=== PATIENT | male | born 1935 | race Caucasian/White ===

== ENCOUNTER 2016-03-17 10:19 | Observation (INO) | payer MEDICARE, BC ==
[2016-03-17] MEDS ORDERED: NORMAL SALINE 1000 ML 1,000 ML IV ONE ×2 (11:04→12:58)
--- NOTE | 2016-03-17 11:04 | ER Document Report ---
ED Dizziness/Weakness - General Mode of Arrival: Medic Information source: Patient, Relative - Daughter - HPI Patient complains to provider of: Weakness Associated symptoms: Other - See above <JUAN TERRAZAS - Last Filed: 03/17/16 11:18> <DERRICK BEAN - Last Filed: 03/17/16 15:47> - General Chief Complaint: Weakness Stated Complaint: WEAKNESS Notes: Patient is an 80 year old male, with a past medical history including diabetes, who presents to the emergency department with his daughter via EMS complaining of weakness onset 5 days ago. Per daughter patient became weak Th night and had difficulty moving. Daughter states that patient was put on 40mg of Prosac daily last week and is worried that has triggered his weakness. Patient reports that he has not been eating since becoming weak and complains of pain in his left lateral neck muscles. Patient states that he was so weak last night that he had to crawl to the bathroom. Patient denies cough and fever. PCP: Dr. Dao (JUAN TERRAZAS) - Related Data Allergies/Adverse Reactions: No Known Allergies Allergy (Unverified 04/09/12 23:50) Past Medical History - General Information source: Patient - Social History Smoking Status: Unknown if Ever Smoked Family History: None, Reviewed & Not Pertinent - Past Medical History Cardiac Medical History: Reports: Hx Hypercholesterolemia Endocrine Medical History: Reports: Hx Diabetes Mellitus Type 2 Renal/ Medical History: Reports: Hx Kidney Stones Musculoskeltal Medical History: Reports Hx Arthritis - knees, Reports Other - Hx essential tremor Past Surgical History: Reports: Hx Inguinal Hernia - bilaterally - Immunizations Hx Diphtheria, Pertussis, Tetanus Vaccination: Yes - 2007 <JUAN TERRAZAS - Last Filed: 03/17/16 11:18> Review of Systems - Review of Systems Constitutional: See HPI, Weakness. denies: Fever EENT: No symptoms reported Cardiovascular: No symptoms reported Respiratory: denies: Cough Gastrointestinal: See HPI, Poor appetite Genitourinary: No symptoms reported Male Genitourinary: No symptoms reported Musculoskeletal: No symptoms reported Skin: No symptoms reported Hematologic/Lymphatic: No symptoms reported Neurological/Psychological: No symptoms reported -: Yes All other systems reviewed and negative <JUAN TERRAZAS - Last Filed: 03/17/16 11:18> Physical Exam - Vital signs Interpretation: Normal, Other - Pulses not particularly strong - General General appearance: Appears well, Alert - HEENT Head: Normocephalic, Atraumatic Mucous membranes: Dry Neck: No: Carotid bruit - Respiratory Respiratory status: No respiratory distress Chest status: Nontender Breath sounds: Normal Chest palpation: Normal - Cardiovascular Rhythm: Regular Heart sounds: Normal auscultation Murmur: No - Abdominal Inspection: Normal Distension: No distension Bowel sounds: Normal Tenderness: Nontender Organomegaly: No organomegaly - Extremities General upper extremity: Normal inspection General lower extremity: Normal inspection - Neurological Neuro grossly intact: Yes Cognition: Normal Orientation: AAOx4 Theron Coma Scale Eye Opening: Spontaneous [place] Coma Scale Verbal: Oriented Theron Coma Scale Motor: Obeys Commands Cassatt Coma Scale Total: 15 Speech: Normal - Psychological Associated symptoms: Normal affect, Normal mood - Skin Skin Temperature: Warm Skin Moisture: Dry Skin Color: Normal <JUAN TERRAZAS - Last Filed: 03/17/16 11:18> Course <JUAN TERRAZAS - Last Filed: 03/17/16 11:18> - Laboratory Result Diagrams: 03/17/16 11:50 03/17/16 11:50 - EKG Interpretation by Vt EKG shows normal: Sinus rhythm, Intervals, QRS Complexes, ST-T Waves. abnormal : [place] - Borderline left axis deviation Rate: Normal - 62 Rhythm: NSR Voltage: Decreased voltage - Consults Dr. Angelo Time consulted: 15:40 Consulted provider: will come to ER <DERRICK BEAN - Last Filed: 03/17/16 15:47> - Re-evaluation Re-evalutation: 03/17/16 14:09 The patient has received IV fluids. He reports he is feeling much better. At this time he is sitting up in bed eating lunch. He does have some difficulty feeding himself due to his essential tremor. 03/17/16 15:37 Patient reports he feels much better after 2 L of IV fluid and eating the lunch that was provided. He did not particular care for the lunch as it was hospital food and not very tasty. At this time he is able to grape picker both feet several inches off the stretcher, but cannot hold them up. He states both feet feel like they weigh over 10 pounds each. The patient's weakness and loss of appetite have developed since starting the Prozac a few days ago. (DERRICK BEAN) - Vital Signs Vital signs: Temp Pulse Resp BP Pulse Ox 97.8 F 65 14 135/88 H 95 03/17/16 10:29 03/17/16 10:29 03/17/16 11:01 03/17/16 11:01 03/17/16 11:01 (DERRICK BEAN) - Laboratory Laboratory results interpreted by me: 03/17/16 03/17/16 11:50 11:50 RBC 4.28 L Hgb 13.3 L Sodium 145.3 H BUN 27 H Est GFR (Non-Af Amer) 56 L Glucose 126 H AST 16 L Creatine Kinase 45 L Total Protein 6.1 L Albumin 3.4 L Discharge <JUAN TERRAZAS - Last Filed: 03/17/16 11:18> - Discharge Admitting Provider: Hospitalist Unit Admitted: Telemetry <DERRICK BEAN - Last Filed: 03/17/16 15:47> - Discharge Clinical Impression: Weakness, Dehydration, Parkinson's-like tremor Condition: Stable Disposition: ADMITTED OBSERVATION Scribe Attestation: 03/17/16 15:47 I personally performed the services described in the documentation, reviewed and edited the documentation which was dictated to the scribe in my presence, and it accurately records my words and actions. (DERRICK BEAN) Scribe Documentation - Scribe Written by Shane:: Shane San, 03/17/16, 11:30 acting as scribe for :: Shelbie <JUAN TERRAZAS - Last Filed: 03/17/16 11:18>
[2016-03-17 11:26] LABS: APPEARANCE,URINE CLEAR; BILIRUBIN,URINE NEGATIVE (NEGATIVE); GLUCOSE, URINE NEGATIVE (NEGATIVE); KETONES,URINE NEGATIVE (NEGATIVE); LEUKOCYTE ESTERASE,URINE NEGATIVE (NEGATIVE); NITRITE,URINE NEGATIVE (NEGATIVE); PROTEIN,URINE NEGATIVE (NEGATIVE); UROBILINOGEN,URINE NEGATIVE mg/dL (<2.0)
[2016-03-17 12:17] LABS: ABSOLUTE EOSINOPHILS # (AUTO) 0.1 10^3/uL (0.0-0.6); ABSOLUTE LYMPHOCYTES (AUTO) 1.2 10^3/uL (0.5-4.7); ABSOLUTE MONOCYTES (AUTO) 0.5 10^3/uL (0.1-1.4); ABSOLUTE NEUT (AUTO) 4.8 10^3/uL (1.7-8.2); BASOPHILS % (AUTO) 0.4 % (0-2); EOSINOPHILS % (AUTO) 0.9 % (0-6); HEMATOCRIT 39.8 % (37.9-51.0); HEMOGLOBIN 13.3 g/dL (13.5-17.0); HGB HCT DIFFERENCE 0.1; LYMPHOCYTES % (AUTO) 17.8 % (13-45); MEAN CORPUSCULAR HGB CONC 33.4 g/dL (32.0-36.0); MEAN CORPUSCULAR VOLUME 93 fl (80-97); MONOCYTES % (AUTO) 7.3 % (3-13); RED BLOOD COUNT 4.28 10^6/uL (4.35-5.55); RED CELL DISTRIBUTION WIDTH 13.1 % (11.5-14.0); SEGMENTED NEUTROPHILS % (AUTO) 73.6 % (42-78); WHITE BLOOD COUNT 6.5 10^3/uL (4.0-10.5)
--- NOTE | 2016-03-17 12:19 | EKG REPORT ---
SEVERITY:- OTHERWISE NORMAL ECG - SINUS RHYTHM BORDERLINE LEFT AXIS DEVIATION LOW VOLTAGE IN FRONTAL LEADS : Confirmed by: Dorinda Schumacher 17-Mar-2016 12:18:52
[2016-03-17 12:36] LABS: ALANINE AMINOTRANSFERASE 32 U/L (21-72); ALBUMIN 3.4 g/dL (3.5-5.0); ALKALINE PHOSPHATASE 89 U/L (38-126); ANION GAP 10 (5-19); ASPARTATE AMINO TRANSFERASE 16 U/L (17-59); BILIRUBIN,TOTAL 0.5 mg/dL (0.2-1.3); BLOOD UREA NITROGEN 27 mg/dL (7-20); CALCIUM 9.1 mg/dL (8.4-10.2); CARBON DIOXIDE 28 mmol/L (22-30); CHLORIDE 107 mmol/L (98-107); CREATINE KINASE 45 U/L (55-170); CREATININE RESULT 1.23 mg/dL (0.52-1.25); GLUCOSE 126 mg/dL (75-110); MAGNESIUM 1.6 mg/dL (1.6-2.3); POTASSIUM 4.3 mmol/L (3.6-5.0); SODIUM 145.3 mmol/L (137-145); TOTAL PROTEIN 6.1 g/dL (6.3-8.2)
[2016-03-17 12:46] LABS: CREATINE KINASE MB 0.37 ng/mL (<4.55)
[2016-03-17 12:47] LABS: TROPONIN I < 0.012 ng/mL
[2016-03-17] MEDS ORDERED: NORMAL SALINE 1000 ML 1,000 ML IV PRN (17:10)
[2016-03-17] MEDS ORDERED: ONDANSETRON HCL INJ/PF 4 MG/2 ML SDV IV PRN (17:10)
[2016-03-17] MEDS ORDERED: ACETAMINOPHEN 325 MG TABLET PO PRN (17:10)
[2016-03-17] MEDS ORDERED: DEXTROSE 40% GEL 15 GM TUBE PO PRN ×2 (17:18)
[2016-03-17] MEDS ORDERED: GLUCAGON,HUMAN RECOMB 1 MG INJ IM PRN (17:18)
[2016-03-17] MEDS ORDERED: INSULIN REG, HUMAN 100 UNIT/ML 3 ML VIAL (PYX) SUBCUT PRN (17:18)
[2016-03-17] MEDS ORDERED: DEXTROSE 50%-WATER 25 GM/50 ML DISP.SYRIN IV PRN ×2 (17:18)
--- NOTE | 2016-03-17 17:41 | PDOC H&P ---
History of Present Illness Admission Date/PCP: 03/17/16 16:03 Patient complains of: Generalized weakness History of Present Illness: DERRICK BARCLAY is a 80 year old male, with history of essential tremors was brought to the hospital because of progressive weakness for the past week or so. 10 days ago the patient was seen by her primary care physician for a routine physical checkup. Patient's spouse recently and therefore he was given Prozac over with Cipro for 5 days. Since then the patient started to develop worsening tremors unable to hold things and getting progressively weak. Patient likewise developed difficulty ambulating and eventual progressive weakness. Appetite was less due to poor control. Patient complains of some neck discomfort but no rigidity reported. Patient at times has the sensation of falling backwards but then the patient able to ambulate patients having difficulty stopping. Earlier today weakness got worse and patient has to crawl to go to the bathroom therefore the patient was brought here for evaluation. Patient did improve after 2 bags of intravenous fluids but some of the symptoms persisted. Patient was referred for observation. There is no syncope nor dizziness nor lightheadedness. Patient to Prozac for total of 5 days and eventually discontinued it 5 days ago. Past Medical History Past Medical History: Medication reconciliation pending verification from the patient's pharmacist Cardiac Medical History: Reports: Hyperlipidema Denies: Coronary Artery Disease, Myocardial Infarction, Hypertension Pulmonary Medical History: Denies: Asthma, Bronchitis, Chronic Obstructive Pulmonary Disease (COPD), Pneumonia Neurological Medical History: Denies: Seizures Endocrine Medical History: Reports: Diabetes Mellitus Type 2 Renal/ Medical History: Reports: Other - BPH GI Medical History: Reports: Other - Diverticulosis , hemorrhoids Musculoskeltal Medical History: Reports: Arthritis - knees, Other - Hx essential tremor Hematology: Denies: Anemia Past Surgical History Past Surgical History: Reports: Other - Colonoscopy, cataracts extraction Denies: Pacemaker Social History Information Source: Patient Lives with: Family Smoking Status: Former Smoker Frequency of Alcohol Use: None Hx Recreational Drug Use: No Drugs: None Hx Prescription Drug Abuse: No Family History Family History: Other - Tremors but no history of Parkinson's Parental Family History Reviewed: Yes Children Family History Reviewed: Yes Sibling(s) Family History Reviewed.: Yes Medication/Allergy Home Medications: Aspirin [Aspirin 81 mg Chewable Tablet] 81 mg PO DAILY 09/04/12 Metformin HCl [Metformin HCl ER] 500 mg PO BID 11/18/11 Simvastatin [Zocor] 10 mg PO DAILY 11/18/11 Meloxicam [Mobic 7.5 mg Tablet] 7.5 mg PO DAILY 04/09/12 Tamsulosin HCl [Flomax 0.4 mg Cap.sr] 0.4 mg PO DAILY #14 cap.sr.24h 04/10/12 Allergies/Adverse Reactions: No Known Allergies Allergy (Unverified 04/09/12 23:50) Review of Systems Constitutional: ABSENT: chills, fever(s), headache(s), night sweats, weight gain , weight loss Eyes: PRESENT: visual disturbances - Chronic from cataract Ears: PRESENT: hearing changes - Hearing loss chronic Nose, Mouth, and Throat: ABSENT: mouth pain, sore throat Cardiovascular: ABSENT: chest pain, dyspnea on exertion, edema, orthropnea, palpitations Respiratory: ABSENT: cough, hemoptysis, sputum Gastrointestinal: ABSENT: abdominal pain, constipation, diarrhea, hematemesis, hematochezia, melena, nausea, vomiting Genitourinary: ABSENT: dysuria, hematuria Musculoskeletal: PRESENT: muscle weakness - Generalized. ABSENT: joint swelling Integumentary: ABSENT: pruritus, rash, wounds Neurological: PRESENT: dizziness, lack of coordination. ABSENT: abnormal gait, abnormal speech, confusion, focal weakness, syncope Psychiatric: ABSENT: anxiety, depression, homidical ideation, suicidal ideation Endocrine: ABSENT: cold intolerance, heat intolerance, polydipsia, polyuria Hematologic/Lymphatic: ABSENT: easy bleeding, easy bruising Physical Exam Vital Signs: Temp Pulse Resp BP Pulse Ox 98.2 F 65 13 129/71 H 97 03/17/16 14:55 03/17/16 10:29 03/17/16 17:00 03/17/16 16:02 03/17/16 17:00 General appearance: PRESENT: no acute distress, cooperative, well-developed, well-nourished Head exam: PRESENT: atraumatic, normocephalic Eye exam: PRESENT: conjunctiva pink, EOMI, PERRLA - Sluggish. ABSENT: scleral icterus Ear exam: PRESENT: normal external ear exam. ABSENT: drainage Mouth exam: PRESENT: moist, neck supple, tongue midline Neck exam: ABSENT: carotid bruit, JVD, lymphadenopathy, thyromegaly Respiratory exam: PRESENT: clear to auscultation deirdre, decreased breath sounds. ABSENT: rales, rhonchi, wheezes Cardiovascular exam: PRESENT: RRR, +S1, +S2. ABSENT: diastolic murmur, rubs, systolic murmur Pulses: PRESENT: normal dorsalis pedis pul Vascular exam: PRESENT: normal capillary refill GI/Abdominal exam: PRESENT: normal bowel sounds, soft. ABSENT: distended, guarding, mass, organolmegaly, rebound, tenderness Rectal exam: PRESENT: deferred Extremities exam: PRESENT: full ROM. ABSENT: calf tenderness, clubbing, pedal edema Neurological exam: PRESENT: alert, awake, oriented to person, oriented to place , oriented to time, oriented to situation, CN II-XII grossly intact, other - Strength is about 4 over 5 bilateral and equal, fine tremors were noted bilaterally. ABSENT: motor sensory deficit Psychiatric exam: PRESENT: appropriate affect, normal mood. ABSENT: homicidal ideation, suicidal ideation Skin exam: PRESENT: dry, intact, warm. ABSENT: cyanosis, rash Assessment & Plan - Diagnosis (1) Dehydration Is this a current diagnosis for this admission?: Yes (2) Weakness Is this a current diagnosis for this admission?: Yes (3) Inability to walk Is this a current diagnosis for this admission?: Yes (4) Essential tremor Is this a current diagnosis for this admission?: Yes (5) Hypertension Qualifiers: Hypertension type: essential hypertension Qualified Code(s): I10 - Essential (primary) hypertension (6) Type II diabetes mellitus Qualifiers: Diabetes mellitus complication status: with unspecified complications Diabetes mellitus fci insulin use: without fci use Qualified Code(s): E11.8 - Type 2 diabetes mellitus with unspecified complications Is this a current diagnosis for this admission?: Yes (7) Hyperlipidemia Qualifiers: Hyperlipidemia type: unspecified Qualified Code(s): E78.5 - Hyperlipidemia, unspecified Is this a current diagnosis for this admission?: Yes (8) Osteoarthritis Qualifiers: Osteoarthritis location: unspecified site Osteoarthritis type: unspecified Qualified Code(s): M19.90 - Unspecified osteoarthritis, unspecified site Is this a current diagnosis for this admission?: Yes - Time Time Spent: 30 to 50 Minutes Anticipated discharge: Home with Homehealth Within: within 24 hours - Plan Summary Plan Summary: The patient will be admitted to observation. We will obtain MRI of the brain to evaluate for any intracranial pathology causing the weakness. In the meantime we will discontinue the Prozac and hydrate the patient. We will obtain TSH and B12 levels and lactic acid level. Urine culture was sent from the emergency room. We will continue to monitor. DVT prophylaxis with Lovenox will be placed. Further testing depends on initial evaluation and response to treatment as outlined above. May have underlying Parkinson's given signs of rigidity and tremors.
[2016-03-17] MEDS ORDERED: METFORMIN HCL 500 MG TABLET PO ONE (18:00)
[2016-03-17] MEDS ORDERED: (PENDING PHARMACY ID) (Metformin Hcl [Metformin Hcl Er] 500 MG) PO SCH (18:00)
[2016-03-17] MEDS: DOCUSATE SODIUM 100 MG CAPSULE PO SCH (18:06)
[2016-03-17] MEDS ORDERED: SIMVASTATIN 10 MG TABLET PO SCH (22:00)
[2016-03-18 05:59] LABS: ANION GAP 11 (5-19); BLOOD UREA NITROGEN 23 mg/dL (7-20); CALCIUM 8.6 mg/dL (8.4-10.2); CARBON DIOXIDE 25 mmol/L (22-30); CHLORIDE 107 mmol/L (98-107); CREATININE RESULT 1.09 mg/dL (0.52-1.25); GLUCOSE 118 mg/dL (75-110); MAGNESIUM 1.5 mg/dL (1.6-2.3); PHOSPHORUS 2.7 mg/dL (2.5-4.5); SODIUM 142.9 mmol/L (137-145)
[2016-03-18] MEDS ORDERED: LANSOPRAZOLE 30 MG TAB.RAP.DR PO SCH (06:00)
[2016-03-18] MEDS ORDERED: METFORMIN HCL 500 MG TABLET PO SCH (08:00)
[2016-03-18] MEDS ORDERED: ENOXAPARIN SODIUM INJ 40 MG/0.4 ML DISP.SYRIN SUBCUT SCH (08:00)
[2016-03-18] MEDS ORDERED: MAGNESIUM SULFATE/D5W 100 ML IV SCH (09:15)
--- NOTE | 2016-03-18 09:27 | Physician Advisory Note ---
Physician Advisor ProgressNote .: Pursuant to the plan for [facility], I have reviewed the medical record for this patient. Physician Advisor Statement: Possible documentation opportunities if attending agrees: 1. "hypernatremia, likely due to intravascular volume depletion" 2. ? - "adverse effect of Prozac, correctly Rx'd [or ...] & properly administered" - vs. "grief ... w/decreased intake" - Epocrates states Prozac SEs can include xerostomia, hyponatremia, hypotension, seizures, dizziness, tremor. As always, if concerned about any unstable VS or abnormal labs, please comment on them & note what doing about them, & please document each day the potential clinical problems you are concerned could occur if pt not kept in hospital for tx at this time. Discussion: 80yo male w/ chronic co-morbidities including DM-2, essential tremor, BPH, cataract, chronic hearing loss, recent of spouse & tx w/high dose Prozac - presented 1/2 AM to ED w/progressive generalized weakness, increased tremors , difficulty ambulating, decreased intake. (+) Na 145.3, BUN 27, Cr 1.23, U/A neg for infxn. Attending ordered MRI head, d/c Prozac, IVF @80, TSH, B12, lactate, ur cx, PT eval. Status: weakness, hypernatremia, elevated BUN compared to Cr all point to volume depletion. Pt given 2L IVF in ED & continued on IVF @80. Na & BUN improved today, but BUN still elevated. Mag down to 1.5. Approp.ly brought in as Outpt Obs for weakness/volume depletion, given expectation of likely d/c on 03/18 with further eval/tx outpt. If, however, attending finds pt is not sufficiently improved today & that continued tx in inpatient hospital setting medically reasonable & necessary to protect pt's health, safety, & medical condition, please document reasons & may consider change to Inpt status then. Thanks for your help with documentation accuracy/specificity improvement! Arlene Solares MD [facility] Physician Advisor, Fellow of Hospital Medicine
[2016-03-18] MEDS ORDERED: ASPIRIN 81 MG TABLET, CHEWABLE PO SCH (10:00)
[2016-03-18] MEDS ORDERED: TAMSULOSIN HCL 0.4 MG CAP.SR.24H PO SCH (10:00)
[2016-03-18] MEDS: DOCUSATE SODIUM 100 MG CAPSULE PO SCH (10:47)
[2016-03-18] MEDS: MAGNESIUM SULFATE/D5W 1 GM/100 ML RTUPB IV SCH ×3 (14:11→16:02)
[2016-03-18] MEDS ORDERED: INFLUENZA ADLT QUAD (36MOS+) 2016-17 VAC 0.5 ML SYR IM PRN (14:59)
--- NOTE | 2016-03-18 15:07 | PDOC DISCHARGE SUMMARY ---
General - Admit/Disc Date/PCP Admission Date/Primary Care Provider: 03/17/16 16:03 Discharge Date: 03/18/16 - Discharge Diagnosis (1) Dehydration Is this a current diagnosis for this admission?: Yes (2) Essential tremor Is this a current diagnosis for this admission?: Yes (4) Type II diabetes mellitus Is this a current diagnosis for this admission?: Yes (5) Weakness Is this a current diagnosis for this admission?: YesSummary: Secondary to dehydration. Brain MRI shows no acute events. - Additional Information Discharge Diet: Diabetic Discharge Activity: Activity As Tolerated Home Medications: Aspirin [Aspirin 81 mg Chewable Tablet] 81 mg PO DAILY 11/18/11 Metformin HCl [Metformin HCl ER] 500 mg PO BID 11/18/11 Simvastatin [Zocor] 10 mg PO DAILY 11/18/11 Meloxicam [Mobic 7.5 mg Tablet] 7.5 mg PO DAILY 04/09/12 Tamsulosin HCl [Flomax 0.4 mg Cap.sr] 0.4 mg PO DAILY #14 cap.sr.24h 04/10/12 History of Present Illness History of Present Illness: DERRICK BARCLAY is a 80 year old male who presented with generalized weakness and dehydration. Patient had recently been started on Prozac after the of his . Hospital Course Hospital Course: 80-year-old gentleman who recently lost his who was recently started on Prozac. Since that time he has had decreased intake. He presented with generalized weakness consistent with dehydration most likely secondary to side effects of Prozac. The patient was given IV fluids and had resolution of dehydration. Because of the generalized nature and his age and brain MRI was done which showed no evidence for any type of acute event. Patient was able to ambulate with physical therapy and walker was felt that he was stable for discharge to home. We will arrange for home health with physical therapy to help strengthen him. Physical Exam Vital Signs: Temp Pulse Resp BP Pulse Ox 97.5 F 79 14 131/75 H 99 03/18/16 11:30 03/18/16 14:00 03/18/16 11:30 03/18/16 11:30 03/18/16 11:30 Intake & Output 03/17/16 03/18/16 03/19/16 06:59 06:59 06:59 Intake Total 942 300 Balance 942 300 Weight 76.7 kg General appearance: PRESENT: no acute distress Eye exam: PRESENT: conjunctiva pink Mouth exam: PRESENT: moist, tongue midline Neck exam: ABSENT: JVD Respiratory exam: PRESENT: clear to auscultation deirdre. ABSENT: rales, rhonchi, wheezes Cardiovascular exam: PRESENT: RRR. ABSENT: diastolic murmur, rubs, systolic murmur GI/Abdominal exam: PRESENT: normal bowel sounds, soft. ABSENT: distended, guarding, mass, organolmegaly, rebound, tenderness Extremities exam: ABSENT: calf tenderness, clubbing, pedal edema Neurological exam: PRESENT: alert, awake, oriented to person, oriented to place , oriented to time, oriented to situation Psychiatric exam: PRESENT: appropriate affect Skin exam: PRESENT: dry, intact, warm. ABSENT: cyanosis, rash Results Laboratory Results: 03/18/16 04:52 03/17/16 03/18/16 03/18/16 18:05 04:52 04:52 Sodium 142.9 Potassium 4.0 Chloride 107 Carbon Dioxide 25 Anion Gap 11 BUN 23 H Creatinine 1.09 Est GFR ( Amer) > 60 Est GFR (Non-Af Amer) > 60 Glucose 118 H Lactic Acid 1.5 Calcium 8.6 Phosphorus 2.7 Magnesium 1.5 L TSH 1.63 Impressions: Head MRI 03/18/16 00:00 IMPRESSION: Mild chronic ischemic changes. Qualifiers PATEINT BEING DISCHARGED WITH ANY OF THE FOLLOWING DIAGNOSIS?: No Plan Discharge Plan: We'll discharge home with home health for physical therapy. Time Spent: Less than 30 Minutes
[2016-03-18 16:36] VITALS: BP 120/70
== END 2016-03-18 16:59 | disposition home health service (06) ==
LOC: ER 10:19 → EH 16:03 → 4N 17:34
PROVIDERS: ADMIT Family Medicine; ATTEND Family Medicine
PROC: 3E0234Z Introduction of Serum, Toxoid and Vaccine into Muscle, Percutaneous Approach (ICD-10-PCS; principal; 2016-03-18)
DX: E86.0 Dehydration (principal); G25.0 Essential tremor; E11.9 Type 2 diabetes mellitus without complications; Z79.84 Long term (current) use of oral hypoglycemic drugs; R53.1 Weakness; I10 Essential (primary) hypertension; E78.5 Hyperlipidemia, unspecified; M17.0 Bilateral primary osteoarthritis of knee; Z79.82 Long term (current) use of aspirin; Z79.899 Other long term (current) drug therapy; Z87.891 Personal history of nicotine dependence; Z23 Encounter for immunization
CPT/HCPCS: 93005; 99285; 96360; 96361; 36415 ×2; 87040; 87086; 82553; 82962 ×2; 82607; 82550; 83605; 83735 ×2; 84100; 84443; 85025; 80048; 80053; 81001; 84484; 70551; 90686; 93010; 97162; 90471; G0378 ×3; A9270 ×9; J1650; J3475; J3490 ×2; J7030 ×2; G8978; G8979